=== PATIENT | male | born 1995 | race Caucasian/White ===

== ENCOUNTER 2024-08-09 13:03 | Emergency (ER) | payer OTHER, SELFPAY ==
[2024-08-09 13:07] VITALS: BP 137/83; PULSE 103; RESP 16; TEMP 36.4; O2SAT 97; BMI 24.4
--- NOTE | 2024-08-09 13:07 | ED_ITS ---
HPI - Psych General Chief Complaint: Psychiatric Symptoms Stated Complaint: Mental Health Assessment Time Seen by Provider: 08/09/24 13:50 Source: patient Mode of arrival: ambulatory Limitations: no limitations History of Present Illness ED Provider: BARON GRIMES PA-C HPI Narrative: 29-year-old male with pmhx significant for anxiety and depression presents to the ED today for evaluation of worsening depression x a few days. He reports increased depression that he attributes to turning 29 recently. Endorses vague SI without plan. No prior attempts. He reports mentioning this to his mother's friend today who is a therapist, she advised that he come to the ED for further evaluation. States he was on medication for anxiety and depression over 10 years ago. Can not recall the name of these medications. Denies HI. Denies illicit substance use. Reports recreational ETOH consumption. Nothing recent. Denies AH/VH/TH. Denies any physical complaints at present. Related Data Home Medications ?Medication ?Instructions ?Recorded ?Confirmed potassium citrate 15 mEq (1,620 30 meq PO BID 08/09/24 08/09/24 mg) tablet,extended release Allergies Allergy/AdvReac Type Severity Reaction Status Date / Time No Known Allergies Allergy Verified 08/09/24 13:14 Review of Systems 2 Review of Systems: Yes all other systems are reviewed and are negative PMFSH Past Medical History Attestation statement: The following information was validated with the patient. Source: old records reviewed and nursing notes reviewed Social History Social History Smoked in Last 30 Days: No Advance Directives: No Advance Directives Information Provided: Yes Do you have a plan to hurt others: No Plan Physical Exam 2 Vital Signs: Vital Signs: Last Vital Signs Temp 98.5 F 08/09/24 17:09 Pulse 92 08/09/24 17:09 Resp 20 08/09/24 17:09 BP 119/71 08/09/24 17:09 Pulse Ox 97 08/09/24 17:09 O2 Del Method Room Air 08/09/24 17:09 BMI result Body Mass Index 24.4 Vital signs stable General: Well appearing, in no acute distress. Skin: Warm, dry, intact. No rashes or lesions. Head: Normocephalic, atraumatic. EENT: Hearing is intact b/l. Conjunctiva clear. PERRLA. EOM intact. Moist mucous membranes.? Cardiac: Chest wall symmetric. RRR Lungs: Normal respiratory effort without accessory muscle use. CTA bilaterally Abdomen: Soft, non-tender, non-distended Back: No midline spinous or paraspinal tenderness. No step off deformity. Ext: Upper and lower extremities atraumatic, without tenderness, deformity, swelling or erythema. Full ROM throughout. Neuro: AOx3. Normal speech. CN 2-12 grossly intact. Ambulating with steady gait. Psych: Appropriate mood and affect. Responds appropriately to questions. Course Course Course Narrative: This is a Rapid Medical Exam performed in triage by Viola Manriquez PA-C. Full HPI, ROS and PE to be performed by primary ED provider. 29-year-old male presenting to the ED c/o increasing depression, without SI/HI, no plan. +social ETOH use, denies drug use. In WR with mother. Denies AH/VH PE: acting appropriate, cooperative. Plan: Labs, tox screen, CARE team consult Reevaluation(s) Reevaluation #1: 0056 -- CBC without leukocytosis or left shift. No anemia. H&H stable. Chemistry without acute electrolyte abnormality requiring intervention. No KIMBERLY. Liver function WNL. Urine toxicology undetectable. Ethanol undetectable. Negative COVID, flu, RSV. > patient seen and cleared by care team. CARE team has established safety plan and patient has outpatient follow up with therapist. Use shared decision-making with both patient and his mother. Patient is safe for discharge home at this time. no plan to harm himself, no hx of SI attempts. His mother is here with him and will be transporting him home. Patient has remained stable throughout ED visit today. Discussed worrisome signs and symptoms and when to return to the ED. All questions answered at this time. Patient is agreeable with disposition and stable for discharge. Medical Decision Making Medical Decision Making MDM Narrative: 29-year-old male with pmhx significant for anxiety and depression presents to the ED today for evaluation of worsening depression x a few days. Differential diagnosis includes anemia, electrolyte abnormality, mood disorder, anxiety, depression, SI, polysubstance abuse Presentation not consistent with acute organic causes to include delirium, dementia or drug induced disorders (acute ingestions or withdrawal; no evidence of toxidrome).? Given the H&P, I suspect this patient is depressed, suicidal and will require observation. Will consult care team to evaluate the patient. Will also obtain labs for medical clearance. Plan: labs, EKG, ETOH level, UDS, care team consultation, reassessment Differential Diagnosis Differential Diagnoses: The differential diagnosis associated with the presentation includes As above Admission/Observation Not indicated Consult Healthcare Provider Management of the patient was discussed with: Wedding Coordinator (Care team) Lab Data MDM Lab Attestation statement: I reviewed the patient's lab results. As above 08/09/24 13:33 08/09/24 13:33 Labs: Lab Results 08/09/24 08/09/24 Range/Units 13:33 14:42 WBC 6.3 (4.8-10.8) X10*3/uL RBC 5.70 (4.60-5.80) X10*6/uL Hgb 17.2 (14.0-18.0) g/dl Hct 49.7 (42.0-52.0) % MCV 87.2 (80.0-98.0) fL MCH 30.2 (27.0-33.0) pg MCHC 34.6 (31.0-36.0) g/dl RDW 11.8 (11.0-16.0) % Plt Count 351 (160-400) X10*3/uL MPV 9.4 (9.4-12.4) fL Immature Gran % (Auto) 0.5 H (0.0-0.4) % Neut % (Auto) 61.2 (45-73) % Lymph % (Auto) 26.9 (20-40) % [place] % (Auto) 7.1 (2-11) % Eos % (Auto) 3.2 (0-4) % Baso % (Auto) 1.1 (0-2) % Lymph # (Auto) 1.7 (1.2-4.9) X10*3/uL [place] # (Auto) 0.5 (0.1-1.2) X10*3/uL Eos # (Auto) 0.2 (0.0-0.4) X10*3/uL Baso # (Auto) 0.1 (0.0-0.2) X10*3/uL Abs Immat Gran (auto) 0.03 (0.00-0.03) X10*3/uL Absolute Neuts (auto) 3.9 (2.0-8.3) x10*3/uL Absolute Nucleated RBC 0.000 (0.0-0.012) X10*3/uL Nucleated RBC % (auto) 0.0 (0.0-0.2) /100WBC Sodium 139 (135-145) mmol/L Potassium 3.8 (3.3-5.1) mmol/L Chloride 106 (96-108) mmol/L Carbon Dioxide 26 (22-29) mmol/L Anion Gap 11 L (12-20) BUN 14 (9-16) mg/dL Creatinine 0.82 (0.5-1.4) mg/dL Estim Creat Clear Calc 136.0 Estimated GFR > 60 Random Glucose 99 (60-115) mg/dL Calcium 9.5 (8.4-10.2) mg/dL Magnesium 2.1 (1.6-2.6) mg/dL Total Bilirubin 0.6 (0.0-1.0) mg/dL Direct Bilirubin 0.2 (0.0-0.5) mg/dL AST 34 (5-37) U/L ALT 83 H (0-40) U/L Alkaline Phosphatase 66 (39-117) U/L Total Protein 7.8 (6.5-8.0) g/dL Albumin 4.8 (3.5-5.0) g/dL Urine Opiates Screen Not Detected (Not Detect) Ur Buprenorphine Scrn Not Detected (Not Detect) ng/mL Ur Oxycodone Screen Not Detected (Not Detect) ng/mL Urine Methadone Screen Not Detected (Not Detect) ng/mL Urine Fentanyl Screen Not Detected (Not Detect) Ur Barbiturates Screen Not Detected (Not Detect) Ur Phencyclidine Scrn Not Detected (Not Detect) Ur Amphetamines Screen Not Detected (Not Detect) U Benzodiazepines Scrn Not Detected (Not Detect) Urine Cocaine Screen Not Detected (Not Detect) U Marijuana (THC) Screen Not Detected (Not Detect) Ethyl Alcohol < 10 mg/dL Influenza Type A (PCR) NEGATIVE (Negative) Influenza Type B (PCR) NEGATIVE (Negative) RSV RNA Qual (PCR) NEGATIVE (Negative) SARS-CoV-2 RNA (RT-PCR) NEGATIVE (Negative) Independent Historian Clinical information obtained from an independent historian. History obtained from or confirmed by: Parent (Mom) Chronic Conditions Patient?s care impacted by: Other (Anxiety, depression) Social Determinants Patient?s care significantly limited by Social Determinants of Health including: Other Social Determinant of Health Critical Care Time Critical Care Time Critical Care Time: No Discharge Plan Discharge Clinical Impression: Depression Patient Disposition: Home, Self-Care Instructions: Depression (ED) Additional Instructions: You were seen in our Emergency Department today for treatment of a behavioral health issue. It is important after your visit that you follow up with either your behavioral health provider or a primary care doctor within 7 days.? You were seen by our care team and have a safety plan in place with outpatient therapist follow-up. If you have trouble finding a therapist you can reach out to [address] [phone] The National Suicide and Crisis Lifeline can be reached 7 days a week 24 hours a day.? Call 988 to speak with someone.? Return for any worsening symptoms or concerns such as thoughts of self harm or harm to others. Please call 911 if you feel your mental health is worsening.? Prescriptions: No Action potassium citrate 15 mEq Tablet Extended Release 30 meq PO BID Referrals: Aaron Mcmahan DO [Primary Care Provider] - Interventions: [place]-Suicide Risk Severity Scale Last Done: 08/09/24 13:14 ED Discharge Assessment Last Done: 08/09/24 17:09 Discharge Date/Time: 08/09/24 17:23 Print Language: Yakut
[2024-08-09 13:39] LABS: MANUAL DIFF FLAG NO
[2024-08-09 13:41] LABS: Basophils Absolute Auto 0.1 X10*3/uL (0.0-0.2); Basophils Percent Auto 1.1 % (0-2); Eosinophils Absolute Auto 0.2 X10*3/uL (0.0-0.4); Eosinophils Percent Auto 3.2 % (0-4); Hematocrit 49.7 % (42.0-52.0); Hemoglobin 17.2 g/dl (14.0-18.0); Imm Gran Abs Auto 0.03 X10*3/uL (0.00-0.03); Imm Gran Pct Auto 0.5 % (0.0-0.4); Lymphocytes Absolute Auto 1.7 X10*3/uL (1.2-4.9); Lymphocytes Percent Auto 26.9 % (20-40); Mean Corpuscular HGB Conc 34.6 g/dl (31.0-36.0); Mean Corpuscular Hemoglobin 30.2 pg (27.0-33.0); Mean Corpuscular Volume 87.2 fL (80.0-98.0); Mean Platelet Volume 9.4 fL (9.4-12.4); Monocytes Absolute Auto 0.5 X10*3/uL (0.1-1.2); Monocytes Percent Auto 7.1 % (2-11); Neutrophils Absolute Auto 3.9 x10*3/uL (2.0-8.3); Neutrophils Percent Auto 61.2 % (45-73); Platelet Count 351 X10*3/uL (160-400); Red Cell Distribution Width 11.8 % (11.0-16.0); White Blood Count 6.3 X10*3/uL (4.8-10.8)
[2024-08-09 13:56] LABS: Ethanol < 10 mg/dL
[2024-08-09 14:00] LABS: Alanine Aminotransferase 83 U/L (0-40); Albumin Level 4.8 g/dL (3.5-5.0); Alkaline Phosphatase 66 U/L (39-117); Anion Gap 11 (12-20); Aspartate Amino Transferase 34 U/L (5-37); Bilirubin Direct 0.2 mg/dL (0.0-0.5); Bilirubin Total 0.6 mg/dL (0.0-1.0); Blood Urea Nitrogen 14 mg/dL (9-16); Calcium 9.5 mg/dL (8.4-10.2); Carbon Dioxide 26 mmol/L (22-29); Chloride 106 mmol/L (96-108); Estimated Glomerular Filt Rate > 60; Glucose Random 99 mg/dL (60-115); Magnesium 2.1 mg/dL (1.6-2.6); Potassium 3.8 mmol/L (3.3-5.1); Sodium 139 mmol/L (135-145); Total Protein 7.8 g/dL (6.5-8.0)
[2024-08-09 14:22] LABS: Influenza A PCR NEGATIVE (Negative); Influenza B PCR NEGATIVE (Negative); Resp Syncy Virus RNA Qual PCR NEGATIVE (Negative); SARS COV2 PCR INHOUSE NEGATIVE (Negative)
[2024-08-09 15:07] VITALS: BP 119/71; PULSE 92; RESP 20; TEMP 36.9; O2SAT 97
[2024-08-09 15:17] LABS: Amphetamine Screen Urine Not Detected (Not Detect); Barbiturates, Urine Not Detected (Not Detect); Benzodiazepines Screen Urine Not Detected (Not Detect); Buprenorphine Scr Not Detected (Not Detect); Cannabinoid Screen Urine Not Detected (Not Detect); Cocaine Screen Urine Not Detected (Not Detect); Fentanyl, urine Not Detected (Not Detect); Methadone Screen, Urine Not Detected (Not Detect); Opiate Screen Urine Not Detected (Not Detect); Oxycodone Screen Urine Not Detected (Not Detect); Phencyclidine Screen Urine Not Detected (Not Detect)
[2024-08-09 17:09] VITALS: BP 119/71; PULSE 92; RESP 20; TEMP 36.9; O2SAT 97
--- OUTSIDE RECORDS SUMMARY | 2024-08-09 17:33 | XMS_ITS | Encounter Summary ---
Author Organization [facility] Address [address] [place] [address] Phone Care Team Providers Care Shaper Setter Name Role Phone Unavailable Primary Care Provider Unavailabl e Encounter Details Date Type Department Care Team (Late st Contact Info) Description 09/04/2017 Conversion Encounter [facility] [address] [id number] Social History Tobacco Use Types Packs/Day Years Used Date Smoking Tobacco: Never Assessed Sex and Gender Information Value Date Recorded Sex Assigned at Not on file Legal Sex Male 6:10 PM EDT Gender Identity Not on file Sexual Orientation Not on file documented as of this encounter Plan of Treatment Not on file documented as of this encounter Visit Diagnoses Not on filedocumented in this encounter
--- OUTSIDE RECORDS SUMMARY | 2024-08-09 17:33 | XMS_ITS | Clinical Summary ---
Author Organization [facility] Address [address] [place] [address] Phone Care Team Providers Care Kitchen Runner Name Role Phone Unavailable Primary Care Provider Unavailabl e Immunizations Immunization Administration Dates Next Due DTaP 07/27/1999, 6,02/04/1995,11/26,1994 Hep B, ped/adol 05/30/1995,1994,1994 Hib (PRP-T) 11/04/1995, 5,1994,09/24 Influenza, injectable, quadrivalent 04/28/2011 MMR 01/15/1999,07/29/1995 Meningococcal Conj (Menactra) MCV4P 04/28/2011,1 05/06/2006 OPV 01/15/1999, 5,1994,09/24 Td (adult) (Tenivac), 5 Lf t etanus toxoid, PF, adsorbed 07/27/2004 Tdap 04/03/2010 Varicella 03/06/2007,07/27/1999 Family History Relation Name Status Comments Father Alive healthy age: 40 Father's Brother Alive on list for heart and lung transplant age: 43 Father's Sister Alive mentally ret arted Maternal Grandfather lung ca ncer age: 58 Maternal Grandmother Alive hyperte nsion age: 62 Mother Alive hypertension ag e: 36 Paternal Grandfather idiopat hique lung disease Paternal Grandmother Alive diabete s, type II, diabetic neuropathy age: 70 Social History Tobacco Use Types Packs/Day Years Used Date Smoking Tobacco: Never Assessed Sex and Gender Information Value Date Recorded Sex Assigned at Not on file Legal Sex Male 6:10 PM EDT Gender Identity Not on file Sexual Orientation Not on file Last Filed Vital Signs Vital Sign Reading Time Taken Comments Blood Pressure 134/70 01/06/2012 12:00 AM EDT Pulse - - Temperature 37.4 ??C (99.3 ??F) 08/17/2011 12:00 AM E DT Respiratory Rate - - Oxygen Saturation - - Inhaled Oxygen Concentration - - Weight 59.5 kg (131 lb 3.2 oz) 01/06/2012 12:00 AM EDT Height 176.5 cm (5' 9.5 ) 01/06/2012 12:00 AM ED T Body Mass Index 19.1 01/06/2012 12:00 AM EDT Plan of Treatment Health Maintenance Due Date Last Done Comments DTaP,Tdap,and Td Vaccines (7 - Td or Tdap) 04/03/2020 04/03/2010, 07/27/2004, 07/27/1999, Additional history exists Influenza Vaccines (#1) 2023 04/28/2011 COVID-19 Vaccine ( season) 2023 Hepatitis B Vaccines Completed 05/30/1995, 1994, 1994 HIB Vaccines Completed 11/04/1995, 01/17, 1994, Additional history exists IPV Vaccines Completed 01/15/1999, 01/17, 1994, Additional history exists MMR Vaccines Completed 01/15/1999, 07/29/1995 Varicella Vaccines Completed 03/06/2007, 07/27/1999 Meningococcal Vaccine Completed 04/28/2011, 007 HPV Vaccines Aged Out No longer eligi ble based on patient's age to complete this topic Hepatitis A Vaccines Aged Out No long er eligible based on patient's age to complete this topic Men B Vaccine Aged Out No longer elig ible based on patient's age to complete this topic Pneumococcal Vaccine Aged Out No long er eligible based on patient's age to complete this topic
== END 2024-08-09 17:23 | disposition home or self-care (01) ==
PROVIDERS: Physician Assistant; Emergency Provider Emergency Medicine; PCP Family Medicine
DX: F32.A Depression, unspecified (principal); R45.851 Suicidal ideations; F41.9 Anxiety disorder, unspecified; Z03.818 Encounter for observation for suspected exposure to other biological agents ruled out
CPT/HCPCS: 0241U; 36415; 80048; 80076; 80307; 83735; 85025; 99284; S9485